=== PATIENT | female | born 1990 | race Caucasian/White ===

== ENCOUNTER 2021-08-15 00:17 | Emergency (ER) | payer MEDICAID ==
[~2021-08-15] VITALS: Ht 160 cm; Wt 81.6 kg
[2021-08-15] MEDS ORDERED: methylPREDNISolone SOD SUCC 125 MG/2 ML VL IM ONE (00:30)
[2021-08-15] MEDS ORDERED: PRED20TA2 PO (00:49)
[2021-08-15] MEDS ORDERED: DexAMETHasone SOD PHOS 4 MG/1ML SDV INJ IM ONE (01:15)
[2021-08-15 01:55] VITALS: BP 116/83
[2021-08-15] MEDS ORDERED: diphenhdrAMINE HCL 50 MG/1 ML VL IM ONE (02:00)
== END 2021-08-15 05:44 | disposition home or self-care (01) ==
LOC: ER 00:17
DX: L50.9 Urticaria, unspecified (principal); Z79.899 Other long term (current) drug therapy
CPT/HCPCS: 96372; 99284; J1100; J1200; J2930

== ENCOUNTER 2021-08-15 06:55 | Emergency (ER) | payer MEDICAID ==
[~2021-08-15] VITALS: Ht 160 cm; Wt 81.6 kg
[~2021-08-15 06:55] MED LIST: PRED20TA2 PO
[2021-08-15] MEDS ORDERED: EPINEPHrine HCL 1 MG/1 ML AMP SC ONE (07:45)
[2021-08-15] MEDS ORDERED: diphenhdrAMINE HCL 50 MG/1 ML VL IM ONE (07:45)
[2021-08-15 08:17] VITALS: BP 129/80
== END 2021-08-15 08:23 | disposition home or self-care (01) ==
LOC: ER 06:55
DX: T78.40XA Allergy, unspecified, initial encounter (principal); Z79.899 Other long term (current) drug therapy; Y92.89 Other specified places as the place of occurrence of the external cause
CPT/HCPCS: 96372; 99284; J0171; J1200

== ENCOUNTER 2021-11-07 03:16 | Emergency (ER) | payer MEDICAID ==
[~2021-11-07] VITALS: Ht 160 cm; Wt 81.6 kg
[2021-11-07] MEDS ORDERED: ONDANSETRON HCL 4 MG/2 ML VIAL IV ONE (03:30)
[2021-11-07 04:28] LABS: Basophils # (auto) 0 10 ^3/uL (0-0.2); Basophils % (auto) 0.6 % (0.0-2.0); Eosinophils # (auto) 0.1 10 ^3/uL (0-0.8); Eosinophils % (auto) 0.9 % (0.0-7.0); Hematocrit 39.5 % (36.0-46.0); Hemoglobin 13.6 g/dL (12.2-16.2); Lymphocytes % (auto) 29.3 % (10.0-50.0); Mean Corpuscular Hemoglobin 29.2 pg (28.0-32.0); Mean Corpuscular Hgb Conc. 34.4 g/dL (32.0-36.0); Monocytes # (auto) 0.4 10 ^3/uL (0-1.3); Monocytes % (auto) 5.1 % (0.0-12.0); Neutrophils # (auto) 4.4 10 ^3/uL (1.6-8.6); Neutrophils % (auto) 64.1 % (37.0-80.0); Nucleated Red Blood Cells % 0.2 %; Red Blood Cells 4.65 10^6/uL (4.0-5.20); Red Cell Distribution Width 13.8 % (11.8-14.3); White Blood Cell 6.9 10^3/uL (4.4-10.8)
[2021-11-07 04:33] VITALS: BP 100/66
[2021-11-07 04:45] LABS: Alanine Aminotransferase 21 U/L (13-56); Albumin 3.9 g/dL (3.4-5.0); Anion Gap 7 (5-15); Aspartate Aminotransferase 15 U/L (15-37); BUN/Creatinine Ratio 22.4; Blood Urea Nitrogen 15 mg/dL (7-18); Calcium 8.6 mg/dL (8.5-10.1); Carbon Dioxide 22 mmol/L (21-32); Chloride 109 mmol/L (98-107); GFR African American 133 mL/min; GFR Non-African American 110 mL/min; Glucose 87 mg/dL (74-106); Potassium 3.6 mmol/L (3.5-5.1); Sodium 138 mmol/L (136-145)
[2021-11-07 04:51] LABS: Alkaline Phosphatase 43 U/L (45-117); Bilirubin, Total 0.4 mg/dL (0.2-1.0); Total Protein 7.4 g/dL (6.4-8.2)
[2021-11-07 05:19] LABS: Amylase 59 U/L (25-115); Lipase 114 U/L (73-393)
== END 2021-11-07 06:03 | disposition left against medical advice (07) ==
LOC: ER 03:16
DX: R07.9 Chest pain, unspecified (principal); R11.2 Nausea with vomiting, unspecified; Z53.21 Procedure and treatment not carried out due to patient leaving prior to being seen by health care provider
CPT/HCPCS: 36415; 80053; 82150; 83690; 83880; 84484; 85025; 93005

== ENCOUNTER 2023-07-26 13:41 | Emergency (ER) | payer MEDICAID ==
[~2023-07-26] VITALS: Ht 157.5 cm; Wt 92.0 kg
[2023-07-26 15:05] LABS: Basophils # (auto) 0.1 10 ^3/uL (0-0.2); Basophils % (auto) 1.1 % (0.0-2.0); Eosinophils # (auto) 0.1 10 ^3/uL (0-0.8); Eosinophils % (auto) 1.3 % (0.0-7.0); Hematocrit 39.4 % (36.0-46.0); Hemoglobin 13.2 g/dL (12.2-16.2); Lymphocytes % (auto) 31.8 % (10.0-50.0); Mean Corpuscular Hemoglobin 28.8 pg (28.0-32.0); Mean Corpuscular Hgb Conc. 33.6 g/dL (32.0-36.0); Mean Corpuscular Volume 85.7 fL (80.0-100.0); Monocytes # (auto) 0.3 10 ^3/uL (0-1.3); Monocytes % (auto) 4.9 % (0.0-12.0); Neutrophils # (auto) 3.8 10 ^3/uL (1.6-8.6); Neutrophils % (auto) 60.9 % (37.0-80.0); Nucleated Red Blood Cells % 0.1 %; White Blood Cell 6.3 10^3/uL (4.4-10.8)
[2023-07-26 15:21] LABS: Alanine Aminotransferase 15 U/L (7-40); Albumin 4.4 g/dL (3.2-4.8); Alkaline Phosphatase 41 U/L (46-116); Anion Gap 7 (5-15); Aspartate Aminotransferase 18 U/L (13-40); Blood Urea Nitrogen 8 mg/dL (9-23); Calcium 9.1 mg/dL (8.5-10.1); Carbon Dioxide 25 mmol/L (20-30); Chloride 109 mmol/L (98-107); Glucose 87 mg/dL (74-106); Potassium 3.9 mmol/L (3.5-5.1); Sodium 141 mmol/L (136-145)
[2023-07-26 15:22] LABS: Bilirubin, Total 0.3 mg/dL (0.2-1.0)
[2023-07-26 16:51] LABS: Urine Bacteria NONE SEEN /hpf (None Seen); Urine Blood 3+ /uL (Negative); Urine Clarity Clear (Clear); Urine Color Yellow (Yellow); Urine Protein, UAD 1+ (Negative); Urine Urobilinogen Normal (Negative); Urine WBC 4 /hpf (0 - 5); Urine pH 7.5 (5.0-8.0)
[2023-07-26] MEDS ORDERED: IBUP1TAB5 PO (21:27)
[2023-07-26 21:45] VITALS: BP 142/97; PULSE 68; RESP 18; TEMP 97.1; O2SAT 100
== END 2023-07-26 21:47 | disposition home or self-care (01) ==
LOC: ER 13:41
DX: N93.9 Abnormal uterine and vaginal bleeding, unspecified (principal); R10.2 Pelvic and perineal pain; F41.9 Anxiety disorder, unspecified; Z79.899 Other long term (current) drug therapy
CPT/HCPCS: 36415; 76830; 76856; 80053; 81001; 84702; 85025

== ENCOUNTER 2025-05-10 13:46 | Inpatient (IN) | payer MEDICAID ==
[~2025-05-10] VITALS: Ht 160 cm; Wt 97.2 kg
[~2025-05-10 13:46] MED LIST changes: +IBUP1TAB5 PO
--- NOTE | 2025-05-10 14:37 | ED.PDOC ---
HPI Comments This is a 34 year old female presenting to the ED with chief complaint of chest pain. Patient reports that she was seen at [facility] yesterday for complaints of palpitations with associated chest pain, neck pain, generalized weakness, and numbness/tingling in her bilateral legs. Patient relays that she was worked up, but ended up being discharged despite her EKG being abnormal with her HR in the 140s. Patient states she followed up with her PCP today and was advised to r eturn to the ED due to her labs being abnormal as well. Patient notes her symptoms have worsened over time and she is concerned. Patient denies any SOB, dizziness, headache, N/V, or abdominal pain. Chief Complaint: General Weakness Time Seen by MD: 14:35 Primary Care Provider: JENISE Pena Notes: Nurses Notes, Medications, Allergies Allergies: Coded Allergies: Doxycycline (Verified Allergy, Unknown, 05/10/25) Penicillins (Verified Allergy, Unknown, 05/10/25) Home Meds Active Scripts Ibuprofen Micronized (Ibuprofen) 600 Mg Tab, 1 TAB PO Q8HPRN PRN, #20 TAB as needed for pain Prov:ALICIA HOWARD NP 07/26/23 Prednisone (Prednisone) 20 Mg Tab, 20 MG PO BID PRN for 5 Days, #10 MG 0 Refills Prov:SEA HUMPHREY 08/15/21 Information Source: Patient Mode of Arrival: Ambulatory Severity: Moderate Timing: Days Duration: Since onset Prehospital treatment: None Location: Chest (L) Radiation: Neck Quality: Sharp Onset: At Rest Cardiac Risk Factors: None PE Risk Factors: None History of: None Associated Signs and Symptoms: Palpitations Past Medical History PAST MEDICAL HISTORY: Anxiety Surgical History: Denies all surgeries CLIENT PROGRAM MANAGER History: No Pertinent CLIENT PROGRAM MANAGER History Family History Family History: Reviewed,noncontributory to illness, No family hx of Cancer, No family hx of DM, No family hx of Heart michael, No family hx of HTN, No family hx ofKidney michael, No family hx of Liver michael, No family hx of Lung michael, No family hx of Stroke Social History Smoker: Non-Smoker Alcohol: Denies ETOH Use Drugs: Denies Drug Use Lives In: Home Constitutional: reports: weakness; denies: chills, diaphoresis, fatigue, fever, malaise, sweats, others EENTM: denies: blurred vision, double vision, ear bleeding, ear discharge, ear drainage, ear pain, ear ringing, eye pain, eye redness, hearing loss, mouth pain, mouth swelling, nasal discharge, nose bleeding, nose congestion, nose pain, photophobia, tearing, throat pain, throat swelling, voice changes, others Respiratory: denies: cough, hemoptysis, orthopnea, SOB at rest, shortness of breath, SOB with excertion, stridor, wheezing, others Cardiovascular: reports: chest pain, palpitations; denies: dizzy spells, diaphoresis, Dyspnea on exertion, edema, irregular heart beat, left arm pain, lightheadedness, PND, syncope, others Gastrointestinal: denies: abdomen distended, abdominal pain, blood streaked bowels, constipated, diarrhea, dysphagia, difficulty swallowing, hematemesis, melena, nausea, poor appetite, poor fluid intake, rectal bleeding, rectal pain, vomiting, others Genitourinary: denies: abnormal vagina bleeding, burning, dyspareunia, dysuria, flank pain, frequency, hematuria, incontinence, pain, , vagina discharge, urgency, others Neurological: reports: numbness, tingling; denies: dizziness, fainting, headache, left sided numbness, left sided weakness, paresthesia, pre-existing deficit, right sided numbness, right sided weakness, seizure, speech problems, tremors, weakness, others Musculoskeletal: reports: neck pain; denies: back pain, gout, joint pain, joint swelling, muscle pain, muscle stiffness, others Integumetry: denies: bruises, change in color, change in hair/nails, dryness, laceration, lesions, lumps, rash, wounds, others Allergic/Immunocompromised: denies: Difficulty Healing, Frequent Infections, Hives, Itching, others Hematologic/Lymphatic: denies: anemia, blood clots, easy bleeding, easy bruising, swollen glands, others Endocrine: denies: excessive hunger, excessive sweating, excessive thirst, excessive urination, flushing, intolerance to cold, intolerance to heat, unexplained weight gain, unexplained weight loss, others Psychiatric: denies: anxiety, bipolar disorder, depression, hopeless, panic disorder, schizophrenia, sleepless, suicidal, others All Other Systems: Reviewed and Negative Physical Exam General Appearance: Moderate Distress, Normal HEENT: Normal ENT Inspection, Pharynx Normal, TMs Normal Neck: Full Range of Motion, Non-Tender, Normal, Normal Inspection Respiratory: Chest Non-Tender, Lungs Clear, No Accessory Muscle Use, No Respiratory Distress, Normal Breath Sounds Cardiovascular: No Edema, No JVD, No Murmur, No Gallop, Normal Peripheral Pulses, Tachycardia Breast Exam: Deferred Gastrointestinal: No Organomegaly, Non Tender, No Pulsatile Mass, Normal Bowel Sounds, Soft Genitalia: Deferred Pelvic: Deferred Rectal: Deferred Extremities: No calf tenderness, Normal capillary refill, Normal inspection, Normal range of motion, Non-tender, No pedal edema Musculoskeletal : Apperance: Normal Neurologic: Alert, flavor tank tender II-XII nml as Tested, No Motor Deficits, Normal Affect, Normal Mood, No Sensory Deficits Cerebellar Function: Normal Reflexes: Normal Skin: Dry, Normal Color, Warm Peripheral Pulses: 3+ Radial (R), 3+ Radial (L) Lymphatic: No Adenopathy Was a procedure done? Was a procedure done?: No CP Differential Dx Differential Diagnosis: A-fib, A-Flutter, Angina, Anxiety / Panic Attack, Atrial Dysrhythmia, Electrolyte Disorder X-Ray, Labs, Meds, VS Vital Signs Date Time Temp Pulse Resp B/P (MAP) Pulse Ox O2 Delivery O2 Flow Rate FiO2 05/10/25 13:50 97.8 81 13 135/83 98 97.8 Lab Test 05/10/25 17:10 05/10/25 14:59 Range/Units Urine Color Pending Urine Clarity Pending Urine pH Pending Urine Specific [place] Pending Urine Protein Pending Urine Ketones Pending Urine Blood Pending Urine Nitrite Pending Urine Bilirubin Pending Urine Urobilinogen Pending Urine Leukocyte Esterase Pending Urine RBC Pending Urine Microscopic WBC Pending Urine Squamous Epithelial Cells Pending Urine Bacteria Pending Urine Glucose Pending White Blood Count 12.7 H 4.4-10.8 10^3/uL Red Blood Count 4.51 4.0-5.20 10^6/uL Hemoglobin 13.1 12.2-16.2 g/dL Hematocrit 38.4 36.0-46.0 % Mean Corpuscular Volume 85.1 80.0-100.0 fL Mean Corpuscular Hemoglobin 29.1 28.0-32.0 pg Mean Corpuscular Hemoglobin Concent 34.2 32.0-36.0 g/dL Red Cell Distribution Width 14.4 H 11.8-14.3 % Platelet Count 476 H 140-450 10^3/uL Mean Platelet Volume 7.5 6.9-10.8 fL Neutrophils (%) (Auto) 63.6 37.0-80.0 % Lymphocytes (%) (Auto) 30.1 10.0-50.0 % Monocytes (%) (Auto) 4.7 0.0-12.0 % Eosinophils (%) (Auto) 0.3 0.0-7.0 % Basophils (%) (Auto) 1.3 0.0-2.0 % Neutrophils # (Auto) 8.1 1.6-8.6 10 ^3/uL Lymphocytes # (Auto) 3.8 0.4-5.4 10 ^3/uL Monocytes # (Auto) 0.6 0-1.3 10 ^3/uL Eosinophils # (Auto) 0 0-0.8 10 ^3/uL Basophils # (Auto) 0.2 0-0.2 10 ^3/uL Nucleated Red Blood Cells 0.0 % Sodium Level 141 136-145 mmol/L Potassium Level 3.8 3.5-5.1 mmol/L Chloride Level 108 H 98-107 mmol/L Carbon Dioxide Level 22 20-31 mmol/L Anion Gap 11 5-15 Blood Urea Nitrogen 17 9-23 mg/dL Creatinine 0.75 0.550-1.02 mg/dL Glomerular Filtration Rate Calc 108 >90 mL/min BUN/Creatinine Ratio 22.7 H 10.0-20.0 Serum Glucose 78 74-106 mg/dL Calcium Level 9.3 8.7-10.4 mg/dL Troponin I High Sensitivity < 3 L </=34 ng/L Patient alert. Tachycardia. Vitals stable. EKG reviewed from yesterday hospital visit did show tachycardic. Normal heart rate. Cardiac marker within normal limits. Hemoglobin within normal limits. Possible mitral valve disease. She continues to have chest pain. Time of 1ST Reevaluation: 15:35 Reevaluation 1ST: Unchanged Patient Education/Counseling: Diagnosis, Treatment Family Education/Counseling: No Family Present SEPSIS Sepsis Screen Date sepsis recognized/suspect: May 10, 2025 Time Sepsis recognized/suspect: 1349 Recent Procedure: No On Antibiotic Therapy: No Respiratory Rate >20: No Heart Rate >90: No Temp<36 C (96.8 F) or >38.3 C: No SBP <90 or MAP <65 mmHG: No New Acute Mental Status Change: No Is the patient on CPAP, BIPAP,: No Physician Orders Chest Portable (05/10/25 14:45) Urinalysis (05/10/25 14:45) Electrocardigram (05/10/25 15:43) Vital Signs Date Time Temp Pulse Resp B/P (MAP) Pulse Ox O2 Delivery O2 Flow Rate FiO2 05/10/25 13:50 97.8 81 13 135/83 98 97.8 Laboratory Tests Test 05/10/25 14:59 White Blood Count 12.7 10^3/uL (4.4-10.8) H Departure 1 Departure Time of Disposition: 17:34 Impression: Primary Impression: Chest pain of unknown etiology Additional Impression: Palpitations Disposition: ADMITTED INPATIENT Admit to: Med Surg Condition: Guarded Critical Care Note Critical Care Time?: No Stability Stability form required: No Heart Score Heart Score: Heart Score Response (Comments) Value History Highly Suspicious 2 EKG Normal 0 Age <45 0 Risk Factors 1 or 2 risk factors 1 Troponin Normal limit 0 Total 3 I personally scribed for SHAHZAD ALMEIDA MD ([email or web address]) on 05/10/25 at 14:37. Electronically submitted by Lacho Cage ([email or web address]). SHAHZAD ALMEIDA MD May 10, 2025 14:37
--- NOTE | 2025-05-10 15:19 | DVH ---
CLINICAL HISTORY: sob TECHNIQUE: Single view of the chest was obtained. COMPARISON: XR CHEST 2 VIEWS on DOS: 04/19/24 FINDINGS: The heart size and pulmonary vasculature are normal. The lungs are clear. IMPRESSION: NO ACUTE CARDIOPULMONARY PROCESS.
[2025-05-10 15:20] LABS: Potassium 3.8 mmol/L (3.5-5.1); Sodium 141 mmol/L (136-145)
[2025-05-10 15:21] LABS: Anion Gap 11 (5-15); Calcium 9.3 mg/dL (8.7-10.4); Carbon Dioxide 22 mmol/L (20-31); Hematocrit 38.4 % (36.0-46.0); Hemoglobin 13.1 g/dL (12.2-16.2); Mean Corpuscular Hemoglobin 29.1 pg (28.0-32.0); Mean Corpuscular Volume 85.1 fL (80.0-100.0); Nucleated Red Blood Cells % 0.0 %
[2025-05-10 15:23] LABS: Chloride 108 mmol/L (98-107)
[2025-05-10 15:26] LABS: BUN/Creatinine Ratio 22.7 (10.0-20.0); Blood Urea Nitrogen 17 mg/dL (9-23); Glucose 78 mg/dL (74-106)
[2025-05-10 17:26] LABS: Urine Protein, UAD Negative (Negative)
[2025-05-10] MEDS: SODIUM CHLORIDE 0.9% 1,000 ML IV ONE (19:59)
[2025-05-10] MEDS ORDERED: MORPHINE SULFATE INJ 2 MG/ml SYRG IV PRN (21:45)
[2025-05-10] MEDS ORDERED: DOCUSATE SOD 100 MG CAP PO PRN (21:45)
[2025-05-10] MEDS ORDERED: NITROGLYCERIN 0.4 MG SL TAB SL PRN (21:45)
--- NOTE | 2025-05-10 23:05 | DVH ---
Right lower extremity venous duplex Clinical History: bilateral lower extermity tenderness Comparison: None Technique: Duplex Doppler evaluation of the deep venous system of the lower extremities from the common femoral vein to the popliteal vein including color Doppler and spectral/pulsed waveform analysis was phyllis d. Findings: The common femoral vein demonstrates appropriate compressibility and waveform variability. There is compressibility/patency of the great saphenous vein at the proximal thigh. The femoral vein demonstrates appropriate compressibility and waveform variability. The deep femoral vein demonstrates appropriate compressibility and waveform variability. The popliteal vein demonstrates appropriate compressibility and waveform variability. There is normal compressibility at the tibioperoneal trunk. Impression: 1. No evidence of deep vein thrombosis in the right or left lower extremities.
[2025-05-11] VITALS (7 sets, daily range): BP systolic 108–116; BP diastolic 72–82; PULSE 77–95; RESP 16–20; TEMP 98.1–98.3; O2SAT 97–99
[2025-05-11 01:08] LABS: Thyroid Stimulating Hormone 4.46 uIU/mL (0.55-4.78)
[2025-05-11 01:27] LABS: Beta HCG, Quantitative < 0.0 mIU/mL (1.5-4.2)
[2025-05-11] MEDS ORDERED: AMOX250T8 PO (02:14)
[2025-05-11] MEDS ORDERED: HYDR-3682 PO (02:14)
[2025-05-11] MEDS: ACETAMINOPHEN 325 MG TAB PO PRN (02:23)
--- NOTE | 2025-05-11 02:39 | DVHHPRES ---
History of Present Illness Resident Creating Document: PRACHI GOYAL RESIDENT History of Present Illness History of Present Illness (HPI): Maral Madrigal is a 34-year-old female with a past medical history of legg Stevan Perthes disease who presented to the hospital with complaints of chest pain and palpitations that have persisted for the past three days. She describes the chest pain as sharp, intermittent, and extremely severe, rating it as 10 out of 10 in intensity. The pain radiates to her left shoulder, worsens when she lies down, and is alleviated when she sits up. In addition to the chest symptoms, she reports experiencing headaches for the past week. She also noted that her face felt swollen and hot, accompanied by neck pain that has been ongoing for the same duration. On the day of presentation, she began experiencing pain in both calves. She describes a [id number] sensation in both palms and recalls that the area around her mouth was numb about a week ago, although that symptom has since resolved. She further mentions that her palpitations tend to intensify after eating. Past Medical History (PMH): Legg [place] Perthes disease Past Surgical History (PSH): Cholecystectomy, appendectomy Family history (FH): History of type 2 diabetes mellitus and essential hypertension in mother EtOH: Patient denies alcohol use Smoking /Vaping: Denies smoking Recreational Drugs: Patient denies recreational drug use Residence: Lives with and children Home Medications: None Allergies: Doxycycline, penicillin PCP: Dr. Tejada Specialist relevant to admission: Nonrelevant Review of Systems Review of Systems General: patient denies fever, fatigue, weaknes, sweating, any recent changes in appetite and weight HEENT: Complains of neck pain Cardiovascular: Complains of chest pain and palpitation Respiratory: No cough, and wheezing. Gastrointestinal: Denies nausea, vomiting, dysphagia, odynophagia, heartburn, abdominal pain, flatulence, bloating, diarrhea, constipation, change in stool, or blood in stool. Genitourinary: No dysuria, hematuria, discharge, frequency, urgency, nocturia, incontinence, and urinary retention. Endocrine: No heat or cold intolerance, polydipsia, polyuria, and polyphagia. Neurological: No dizziness, extremity weakness and numbness, tremors, gait dis turbance, seizures, and memory impairment. Psychiatric: Denies depression, anxiety,or insomnia. Musculoskeletal: Complains of bilateral leg pain Skin: No rashes, itching, skin lesion, changes in hair, nail, skin texture and breast. Hematologic/Lymphatic: Denies easy bruising, bleeding tendencies, or lymph node enlargement. Allergies: Coded Allergies: Doxycycline (Verified Allergy, Unknown, 05/10/25) Penicillins (Verified Allergy, Unknown, 05/10/25) Exam Vital Signs Vital Signs Date Time Temp Pulse Resp B/P (MAP) Pulse Ox O2 Delivery O2 Flow Rate FiO2 05/10/25 19:46 92 05/10/25 19:00 98.6 16 109/66 (80) 99 98.6 Exam General Appearance: Alert, Oriented X3, Cooperative, No acute distress HEENT: Atraumatic, PERRLA, EOMI, Mucous membrane moist/pink Respiratory: Clear to auscultation, Normal air movement Cardiovascular: Regular rate, Normal S1, Normal S2, No murmurs, no chest wall tenderness Abdominal: Normal bowel sounds, Soft, No tenderness, No hepatospenomegaly, No masses Extremities: Tenderness in the bilateral calves Skin: No rashes, No breakdown, No significant lesion Neuro: Normal gait, Normal speech, Strength at 5/5 X4 ext, Normal tone, Sensation intact, Cranial nerves 3-12 NL, Reflexes 2+ Psych/Mental Status: Mental status NL, Mood NL Labs/Xrays Labs Test 05/10/25 17:10 05/10/25 14:59 Range/Units Urine Color Colorless Yellow Urine Clarity Clear Clear Urine pH 5.5 5.0-9.0 Urine Specific [place] 1.013 1.001-1.035 Urine Protein Negative Negative Urine Ketones Negative Negative Urine Blood Negative Negative /uL Urine Nitrite Negative Negative Urine Bilirubin Negative Negative Urine Urobilinogen Normal Negative mg/dL Urine Leukocyte Esterase Negative Negative /uL Urine RBC None seen 0 - 4 /hpf Urine Microscopic WBC 1 0-5 /HPF Urine Squamous Epithelial Cells Few <5 /hpf Urine Bacteria Few H None Seen /hpf Urine Glucose Normal Normal mg/dL White Blood Count 12.7 H 4.4-10.8 10^3/uL Red Blood Count 4.51 4.0-5.20 10^6/uL Hemoglobin 13.1 12.2-16.2 g/dL Hematocrit 38.4 36.0-46.0 % Mean Corpuscular Volume 85.1 80.0-100.0 fL Mean Corpuscular Hemoglobin 29.1 28.0-32.0 pg Mean Corpuscular Hemoglobin Concent 34.2 32.0-36.0 g/dL Red Cell Distribution Width 14.4 H 11.8-14.3 % Platelet Count 476 H 140-450 10^3/uL Mean Platelet Volume 7.5 6.9-10.8 fL Neutrophils (%) (Auto) 63.6 37.0-80.0 % Lymphocytes (%) (Auto) 30.1 10.0-50.0 % Monocytes (%) (Auto) 4.7 0.0-12.0 % Eosinophils (%) (Auto) 0.3 0.0-7.0 % Basophils (%) (Auto) 1.3 0.0-2.0 % Neutrophils # (Auto) 8.1 1.6-8.6 10 ^3/uL Lymphocytes # (Auto) 3.8 0.4-5.4 10 ^3/uL Monocytes # (Auto) 0.6 0-1.3 10 ^3/uL Eosinophils # (Auto) 0 0-0.8 10 ^3/uL Basophils # (Auto) 0.2 0-0.2 10 ^3/uL Nucleated Red Blood Cells 0.0 % Sodium Level 141 136-145 mmol/L Potassium Level 3.8 3.5-5.1 mmol/L Chloride Level 108 H 98-107 mmol/L Carbon Dioxide Level 22 20-31 mmol/L Anion Gap 11 5-15 Blood Urea Nitrogen 17 9-23 mg/dL Creatinine 0.75 0.550-1.02 mg/dL Glomerular Filtration Rate Calc 108 >90 mL/min BUN/Creatinine Ratio 22.7 H 10.0-20.0 Serum Glucose 78 74-106 mg/dL Calcium Level 9.3 8.7-10.4 mg/dL Troponin I High Sensitivity < 3 L </=34 ng/L SEPSIS Sepsis Screen Date sepsis recognized/suspect: May 10, 2025 Time Sepsis recognized/suspect: 0 Recent Procedure: No On Antibiotic Therapy: No Respiratory Rate >20: No Heart Rate >90: No Temp<36 C (96.8 F) or >38.3 C: No SBP <90 or MAP <65 mmHG: No New Acute Mental Status Change: No Is the patient on CPAP, BIPAP,: No Physician Orders Chest Portable (05/10/25 14:45) Electrocardigram (05/10/25 15:43) Lactic Acid W/ Reflex Order (05/10/25 21:37) Urinalysis (05/10/25 21:37) Bilat Lower Dvt (05/10/25 21:37) Troponin-I Hs (05/10/25 21:37) B-Type Natriuretic Peptide (05/10/25 21:37) Admit (05/10/25 21:39) Allergies (05/10/25 21:39) Code Status (05/10/25 21:39) Docusate Sodium Capsule (Colace Capsule) (05/10/25 21:45) Complete Blood Count (05/11/25 04:00) Comprehensive Metabolic Panel (05/11/25 04:00) Condition: Fair (05/10/25 21:39) Acetaminophen Tablet (Tylenol Tablet) (05/10/25 21:45) Nitroglycerin Sublingual (Ntrostat Subli (05/10/25 21:45) Morphine Sulfate Injection (05/10/25 21:45) Stat Ekg For Chest Pain (05/10/25 21:39) Notify Md Of Changes From Base (05/10/25 21:39) Jewelry Mold Maker For 24 Hours (05/10/25 21:39) Emergency Dysrhythmia Protocol (05/10/25 21:39) Rhythm Strips Once Every Shift (05/10/25 21:39) D-Dimer (05/10/25 21:42) Vital Signs Date Time Temp Pulse Resp B/P (MAP) Pulse Ox O2 Delivery O2 Flow Rate FiO2 05/10/25 19:46 92 05/10/25 19:00 98.6 91 16 109/66 (80) 99 98.6 05/10/25 13:50 97.8 81 13 135/83 98 97.8 Laboratory Tests Test 05/10/25 14:59 White Blood Count 12.7 10^3/uL (4.4-10.8) H Assessment/Plan Assessment/Plan Assessment/plan # SIRS, suspected sepsis - IV fluids - Ceftriaxone once - Urinalysis and chest x-ray - Lactic acid # Palpitations, likely due to sinus tachycardia due to anxiety/panic disorder - EKG - Troponin # Pleuritic type of chest pain associated with palpiations ?Pericarditis ? Raymond c attack disorder ( anxiety) - EKG - Troponin - D-dimer - CRP - echo # History of Qogj-Gwlby-Rtdgyvr disease - Outpatient follow-up with PCP on discharge - Will order SHANE considering previous history of rash and history of Perthes disease # ?Panic attack disorder consider outpatient psych and SSRI on discharge. PUD prophylaxis: not needed DVT prophylaxis: brisk movement. Barriers to discharge: Medical diagnosis and management in progress. Patient lives with family. Independent for ADL. PCP: Dr. Tejada Specialist Relevant To Admission: Nonrelevant Case discussed with Dr. Feldman. Code Status: Full Code. Complex patient care discussion needed. Spend total 35 minutes for bedside assessment, case discussion and management. Plan discussed with: Patient My Orders Orders - PRACHI GOYAL RESIDENT Procedure Category Date Status Time Lactic Acid W/ Reflex LAB 05/10/25 Logged Order 21:37 Urinalysis LAB 05/10/25 Logged 21:37 Bilat Lower Dvt US 05/10/25 Logged 21:37 Troponin-I Hs LAB 05/10/25 Logged 21:37 B-Type Natriuretic LAB 05/10/25 Logged Peptide 21:37 Admit ADMIT 05/10/25 Transmitted 21:39 Allergies [facility] 05/10/25 In Process 21:39 Code Status CODE 05/10/25 Transmitted 21:39 Docusate Sodium [facility] 05/10/25 Logged Capsule (Colace 21:45 Complete Blood Count LAB 05/11/25 Verified 04:00 Comprehensive LAB 05/11/25 Verified Metabolic Panel 04:00 Condition: Fair [facility] 05/10/25 In Process 21:39 Acetaminophen Tablet [facility] 05/10/25 Logged (Tylenol Tablet) 21:45 Nitroglycerin [facility] 05/10/25 Logged Sublingual (Ntrostat 21:45 Morphine Sulfate [facility] 05/10/25 Logged Injection 21:45 Stat Ekg For Chest [facility] 05/10/25 In Process Pain 21:39 Notify Of Changes [facility] 05/10/25 In Process From Base 21:39 Jewelry Mold Maker For [facility] 05/10/25 In Process 24 Hours 21:39 Emergency Dysrhythmia [facility] 05/10/25 In Process Protocol 21:39 Rhythm Strips Once [facility] 05/10/25 In Process Every Shift 21:39 D-Dimer LAB 05/10/25 Transmitted 21:42 Date of Service: May 10, 2025 Billing Provider: VIOLETTE FELDMAN MD Common Visit Codes: 56593-[id number] INP/OBS CARE (HIGH) Secondary Visit Codes: 55379-[id number] CARE PLAN 30 MINUTES PRACHI GOYAL RESIDENT May 10, 2025 21:43 DIETER ELLIOTT RESIDENT May 11, 2025 08:27
--- NOTE | 2025-05-11 02:54 | ECG ---
[facility] Test Date: 2025-05-10 Test Time: 19:46:45 Pat Name: JERI LAM Department: [facility] ED Patient ID: [id number] Room: [address] [place] [address] 2 Gender: F Engine Cowling Installer: ESTEPHANIE : 1990 Requested By: SHAHZAD ALMEIDA Order Number: [id number] Reading MD: Dariusz Santos Measurements Intervals Amo Rate: 92 P: 71 DC: 133 QRS: 17 QRSD: 88 T: 30 QT: 351 QTc: 435 Interpretive Statements Sinus rhythm Electronically Signed On 05-15-2025 9:27:30 PDT by Dariusz Santos Please click the below link to view image of tracing.
[2025-05-11 07:26] LABS: Alanine Aminotransferase 22 U/L (7-40); Albumin 4.2 g/dL (3.2-4.8); Anion Gap 10 (5-15); BUN/Creatinine Ratio 14.1 (10.0-20.0); Bilirubin, Total 0.6 mg/dL (0.2-1.0); Blood Urea Nitrogen 10 mg/dL (9-23); Calcium 8.9 mg/dL (8.7-10.4); Carbon Dioxide 23 mmol/L (20-31); Chloride 107 mmol/L (98-107); Glucose 83 mg/dL (74-106); Potassium 3.9 mmol/L (3.5-5.1); Sodium 140 mmol/L (136-145); Total Protein 6.8 g/dL (5.7-8.2)
[2025-05-11 07:30] LABS: Hematocrit 38.2 % (36.0-46.0); Hemoglobin 13.0 g/dL (12.2-16.2); Mean Corpuscular Hemoglobin 29.3 pg (28.0-32.0); Mean Corpuscular Volume 86.1 fL (80.0-100.0); Nucleated Red Blood Cells % 0.1 %
[2025-05-11 07:31] LABS: Alkaline Phosphatase 41 U/L (46-116)
--- NOTE | 2025-05-11 15:00 | DVHPN2 ---
Objective Vitals Vital Signs Date Time Temp Pulse Resp B/P (MAP) Pulse Ox O2 Delivery O2 Flow Rate FiO2 05/11/25 13:12 98.3 95 20 116/82 (93) 98 98.3 05/11/25 08:00 Room Air* 0 21 Intake/Output Intake and Output 05/11/25 07:00 Intake Total 200 ml Balance 200 ml Intake Oral 200 ml # Voids 1 Medications Current Medications Medications Dose Ordered Sig/Jeremy Route Start Time Stop Time Status Last Admin Dose Admin Docusate Sodium 100 mg BIDPRN PRN PO 05/10/25 21:45 Acetaminophen 650 mg Q6HP PRN PO 05/10/25 21:45 05/11/25 02:23 650 MG Nitroglycerin 0.4 mg Q5MINP PRN SL 05/10/25 21:45 Morphine Sulfate 2 mg Q30M PRN IV 05/10/25 21:45 Laboratory Results Laboratory Tests 05/11/25 06:48 Chemistry Test 05/11/25 06:48 Albumin 4.2 g/dL (3.2-4.8) Calcium Level 8.9 mg/dL (8.7-10.4) Total Protein 6.8 g/dL (5.7-8.2) Coagulation Test 05/10/25 21:48 D-Dimer, Quantitative 0.30 mg/L FEU (0.0-0.49) LFT Test 05/11/25 06:48 Alanine Aminotransferase (ALT) 22 U/L (7-40) Alkaline Phosphatase 41 U/L (46-116) L Aspartate Amino Transferase (AST) 16 U/L (13-40) Total Bilirubin 0.6 mg/dL (0.2-1.0) Urinalysis Test 05/10/25 17:10 Urine Color Colorless (Yellow) Urine Clarity Clear (Clear) Urine pH 5.5 (5.0-9.0) Urine Specific [place] 1.013 (1.001-1.035) Urine Protein Negative (Negative) Urine Ketones Negative (Negative) Urine Blood Negative /uL (Negative) Urine Nitrite Negative (Negative) Urine Bilirubin Negative (Negative) Urine Urobilinogen Normal mg/dL (Negative) Urine Leukocyte Esterase Negative /uL (Negative) Urine RBC None seen /hpf (0 - 4) Urine Microscopic WBC 1 /HPF (0-5) Urine Squamous Epithelial Cells Few /hpf (<5) Urine Bacteria Few /hpf (None Seen) H Urine Glucose Normal mg/dL (Normal) Assessment/Plan My Orders Orders - KAYDEN BAEZ MD Procedure Category Date Status Time Stat Ekg For Chest GALILEA 05/11/25 In Process Pain 11:37 KAYDEN BAEZ MD May 11, 2025 15:00
--- NOTE | 2025-05-11 15:55 | DVHDS2 ---
Discharge Summary Date of Admission May 10, 2025 at 21:39 Date of Discharge: May 11, 2025 Admitting Diagnosis # SIRS, suspected sepsis # Palpitations, likely due to sinus tachycardia due to anxiety/panic disorder # Pleuritic type of chest pain associated with palpitations ?Pericarditis ? Panic attack disorder ( anxiety) # History of Txin-Ktfgc-Vyflyhf disease # ?Panic attack disorder Labs/Diagnostic Data: Laboratory Results Test 05/11/25 06:48 05/10/25 21:48 05/10/25 17:10 05/10/25 14:59 White Blood Count 12.0 10^3/uL (4.4-10.8) Red Blood Count 4.44 10^6/uL (4.0-5.20) Hemoglobin 13.0 g/dL (12.2-16.2) Hematocrit 38.2 % (36.0-46.0) Mean Corpuscular Volume 86.1 fL (80.0-100.0) Mean Corpuscular Hemoglobin 29.3 pg (28.0-32.0) Mean Corpuscular Hemoglobin Concent 34.1 g/dL (32.0-36.0) Red Cell Distribution Width 14.7 % (11.8-14.3) Platelet Count 383 10^3/uL (140-450) Mean Platelet Volume 7.9 fL (6.9-10.8) Neutrophils (%) (Auto) 59.4 % (37.0-80.0) Lymphocytes (%) (Auto) 33.3 % (10.0-50.0) Monocytes (%) (Auto) 5.6 % (0.0-12.0) Eosinophils (%) (Auto) 0.8 % (0.0-7.0) Basophils (%) (Auto) 0.9 % (0.0-2.0) Neutrophils # (Auto) 7.1 10 ^3/uL (1.6-8.6) Lymphocytes # (Auto) 4.0 10 ^3/uL (0.4-5.4) Monocytes # (Auto) 0.7 10 ^3/uL (0-1.3) Eosinophils # (Auto) 0.1 10 ^3/uL (0-0.8) Basophils # (Auto) 0.1 10 ^3/uL (0-0.2) Nucleated Red Blood Cells 0.1 % Erythrocyte Sedimentation Rate 9 mm/hr (0-20) Sodium Level 140 mmol/L (136-145) Potassium Level 3.9 mmol/L (3.5-5.1) Chloride Level 107 mmol/L (98-107) Carbon Dioxide Level 23 mmol/L (20-31) Anion Gap 10 (5-15) Blood Urea Nitrogen 10 mg/dL (9-23) Creatinine 0.71 mg/dL (0.550-1.02) Glomerular Filtration Rate Calc 115 mL/min (>90) BUN/Creatinine Ratio 14.1 (10.0-20.0) Serum Glucose 83 mg/dL (74-106) Lactic Acid Level 1.4 mmol/L (0.4-2.0) Calcium Level 8.9 mg/dL (8.7-10.4) Total Bilirubin 0.6 mg/dL (0.2-1.0) Aspartate Amino Transferase (AST) 16 U/L (13-40) Alanine Aminotransferase (ALT) 22 U/L (7-40) Alkaline Phosphatase 41 U/L (46-116) C-Reactive Protein High Sensitivity 0.39 mg/dL (<1.0) Total Protein 6.8 g/dL (5.7-8.2) Albumin 4.2 g/dL (3.2-4.8) D-Dimer, Quantitative 0.30 mg/L FEU (0.0-0.49) Troponin I High Sensitivity < 3 ng/L (</=34) Urine Color Colorless (Yellow) Urine Clarity Clear (Clear) Urine pH 5.5 (5.0-9.0) Urine Specific [place] 1.013 (1.001-1.035) Urine Protein Negative (Negative) Urine Ketones Negative (Negative) Urine Blood Negative /uL (Negative) Urine Nitrite Negative (Negative) Urine Bilirubin Negative (Negative) Urine Urobilinogen Normal mg/dL (Negative) Urine Leukocyte Esterase Negative /uL (Negative) Urine RBC None seen /hpf (0 - 4) Urine Microscopic WBC 1 /HPF (0-5) Urine Squamous Epithelial Cells Few /hpf (<5) Urine Bacteria Few /hpf (None Seen) Urine Glucose Normal mg/dL (Normal) B-Type Natriuretic Peptide 24.68 pg/mL (0-100) Other Laboratory Tests 05/11/25 06:48 Brief Hx & Hospital Course: This is a 34 years old female with past medical history of legg Stevan Perthes disease, come to emergency department with chief complaint of chest pain with heart palpitation that have persisted for three days. The patient said her chest pain is sharp, intermittent, and severe 10/10. Pain radiating to her left shoulder worsening when she laid out and alleviated when she sit up. She also had severe headache for one week. She said her face was swollen and hot. She had some neck pain. She also had pain in both calfs. The patient had been in [facility] for workup of chest pain. Per patient everything checked out normal and they discharge her home. They said she had some urinary tract infection and give her Augmentin to take at home. In [facility] the patient's EKG is normal. The patient troponin level three set is negative. The patient's chest pain is reproducible when pressed on her chest. The patient's ultrasound of leg is negative for DVT. The patient's lactic acid level is normal at 1.4. The patient does have WBC of 12. But no source of infection. Advised the patient to follow up with primary care physician 1-2 weeks. 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 At this point I did not find any abnormality on her chest pain. I advised her to take Motrin or ibuprofen over the counter which [place] already prescribed for her for her chest pain possible costochondritis. Activity as tolerated. Diet per home diet. Patient may need outpatient psychiatric evaluation for possible panic attack. Physical exam: HEENT: Normocephalic atraumatic pupils equal react to light and accommodation. Extraocular muscles intact, conjunctiva pink, oropharynx moist, no thrush, no exudate. Lymphatic: No lymphadenopathy Cardiovascular exam: S1, S2 was heard. No murmurs, rubs, gallops Lung: Clear on auscultation bilaterally, no wheeze, rale, rhonchi. GI: Abdominal soft, nondistended, nontenderness, positive bowel sounds. Extremity: No crepitus, cyanosis, edema. Pedal pulses present bilateral. Full range of motion. Skin: Normal turgor, no rash. Psych: Alert, oriented x3. Neurology: No focal deficits, cranial nerve II to XII grossly intact. This medical document was created using an electronic medical record system with [employer] computerized dictation system. Although this document has been carefully reviewed, there may still be some phonetic and typographical errors. These areas are purely typographical due to imperfections of the software programs, and do not reflect any compromise in the patient's medical care. Condition at Discharge: Stable Final Diagnosis/Problems List #chest pain, non cardiac # Palpitations, likely due to sinus tachycardia due to anxiety/panic disorder # Pleuritic type of chest pain associated with palpitations secondary to anxiety # Panic attack disorder ( anxiety) # History of Slyl-Oefox-Thtiszz disease # leukocytosis probable reactive Discharge Disposition: Home Discharge Instruct/Medications Diet: Cardiac 2g Na,low cholest Activity: No Restrictions, As Tolerated Follow Up/Referral: pcp 1-2 weeks Medications: continue home meds Scheduled Amoxicillin & Pot Clavulanate (Amoxicillin/Clavulanate P 250-125 mg), 1 TAB PO BID, (Reported) Hydroxyzine Hcl (Hydroxyzine Hcl), 25 MG PO DAILY, (Reported) Scheduled PRN Ibuprofen Micronized (Ibuprofen), 1 TAB PO Q8HPRN PRN Prednisone (Prednisone), 20 MG PO BID PRN Discharge Statement: "Patient was advised to return to the ER or call 911 if any headaches, dizziness, shortness of breath, chest pain, abdominal pain, bleeding, fevers, or worsening of medical condition. Patient was counseled about treatment plan, medications, possible side effects, patientverbalized understanding. All questions were answered to the best of my ability. This discharge took greater then 30 minutes in planning, reviewing documentation, counseling the patient, and discussing with other team members." ASSESSMENT ASSESSMENT Assessment chest pain, non cardiac Date of Service: May 11, 2025 Billing Provider: KAYDEN BAEZ MD Common Visit Codes: 53653-YPW/OBS DISCH DAY >30min KAYDEN BAEZ MD May 11, 2025 15:55
--- NOTE | 2025-05-14 11:22 | ECG ---
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
[2025-05-14 13:08] LABS: Anti-Nuclear Antibody Direct Negative (Negative)
== END 2025-05-11 16:54 | disposition home or self-care (01) | DRG 756 ==
LOC: ER 13:46 → OVERFLOW 21:39 → TELE-EAST 23:54
PROVIDERS: ADMIT Specialist; ATTEND Specialist
DX: F41.0 Panic disorder [episodic paroxysmal anxiety] (principal); D72.829 Elevated white blood cell count, unspecified; R00.0 Tachycardia, unspecified; M91.12 Juvenile osteochondrosis of head of femur [Legg-Calve-Perthes], left leg; M91.11 Juvenile osteochondrosis of head of femur [Legg-Calve-Perthes], right leg; Z88.0 Allergy status to penicillin; Z88.1 Allergy status to other antibiotic agents; Z79.899 Other long term (current) drug therapy
CPT/HCPCS: 36415; 71045; 80048; 80053; 81001; 83605; 83880; 84443; 84484; 84702; 85025; 85379; 85652; 86038; 86141; 93005; 93970; G0378